=== PATIENT | female | born 1975 | race Caucasian/White ===

== ENCOUNTER → 2021-09-30 10:13 | Outpatient (CLI) | payer OTHER, SELFPAY ==
--- NOTE | ~2021-09-30 | CT_ITS ---
EXAMINATION: CT abdomen pelvis w con DATE: 09/30/2021 10:36 INDICATION: Left lower quadrant abdominal pain TECHNIQUE: Computed tomography (CT) of the abdomen and pelvis was performed with 100 mL Omnipaque-300 intravenous contrast. Automated exposure control and iterative reconstruction technique were employe d. The dose-length product was 505.52 mGy-cm. COMPARISON: None FINDINGS: Lung bases are clear. Heart size is normal. No pericardial or pleural effusion. Status post cholecyst ectomy. Liver, spleen, pancreas, bilateral adrenal glands and kidneys are normal. Decompressed bladde r is normal. The uterus is not identified and has likely been surgically resected. Bowels including t he appendix are normal. Trace amount of likely physiologic free fluid in the pelvis. No abscess or fr ee intraperitoneal gas. No pathologically enlarged abdominal or pelvic lymphadenopathy. Bones are unr emarkable. IMPRESSION: 1. No acute intra-abdominal/pelvic process. Reviewed, dictated and finalized at location B.
== END ==
PROVIDERS: PCP Physician Assistant; Visit Provider Physician Assistant
DX: R10.32 Left lower quadrant pain (principal); Z87.42 Personal history of other diseases of the female genital tract
CPT/HCPCS: 74177; Q9967

== ENCOUNTER 2021-12-21 01:31 | Day surgery (SDC) | payer OTHER, SELFPAY ==
[2021-12-16 14:13] VITALS: BMI 25.2
[2021-12-21 10:04] VITALS: BP 118/70; PULSE 72; RESP 18; TEMP 36.2; O2SAT 99
[2021-12-21] MEDS: LACTATED RINGERS 1,000 ML 150 ML IV CONT (10:11)
--- NOTE | 2021-12-21 10:29 | WPDHPUPDATE1 ---
History and Physical Update Update Date/Time: 12/21/21 10:29 History and Physical has been reviewed, including an updated exam of the patient. There are NO changes in the patient's condition. Risks, benefits, and alternatives have been discussed and questions answered. Patient agrees to proceed with procedure.
--- NOTE | 2021-12-21 10:31 | P.PNAN_ITS ---
Anes - Initial Pre Proc Eval Procedure: Operation Date: 12/21/21 11:15 Proposed Procedures p Esophagogastroduodenoscopy - Manohar Rodriguez MD Date/Time: 12/21/21 10:31 Surgeon: Manohar Rodriguez MD Pre Op Diagnosis: abdominal pain, back pain, abnormal stools Patient Data Age: 46 Gender: F Height: 1.7 m Weight: 73.4 kg Last Vital Signs Temp 97.1 F L 12/21/21 10:04 Pulse 72 12/21/21 10:04 Resp 18 12/21/21 10:04 BP 118/70 12/21/21 10:04 Pulse Ox 99 12/21/21 10:04 O2 Del Method Room Air 12/21/21 10:04 Allergies Allergy/AdvReac Type Severity Reaction Status Date / Time No Known Allergies Allergy Verified 12/21/21 09:59 Home Medications Medication Instructions Recorded Confirmed Type ciprofloxacin HCl 250 mg tablet 250 mg PO Q12H 12/14/21 12/16/21 History (Cipro) estradiol 1 mg tablet 1 mg PO DAILY 12/14/21 12/16/21 History pantoprazole 40 mg tablet,delayed 40 mg PO QAM 12/14/21 12/16/21 History release Patient hx anesthesia problems: none Family hx anesthesia problems: none Results Review: All pre-operative results and documents have been reviewed as part of the pre- operative evaluation. [facility] Past Medical History Medical History (Updated 12/14/21 @ 13:17 by IDA FayeN-Aki) Back pain Cholecystectomy planned Elevated lipase Left flank pain Loose stools Migraine Post hysterectomy menopause Social History Social History Smoking status: Never smoker Alcohol intake: never Substance use: never Substance use type: does not use Living arrangements: with family Spiritual care concerns: No Anes - Eval Final PreProcedure Day of Procedure 12/21/21 10:31 Patient weight: normal Heart: regular rate and rhythm Lungs: clear to auscultation Airway: Mallampati scale Neurological: alert and oriented Last oral intake: >/= 8 hours ASA classification: II Emergent: no Anesthetic plan: proceed Anesthesia type and monitoring: general GIVS and standard monitoring Results Review: All pre-operative results and documents have been reviewed as part of the pre- operative evaluation. Informed Consent: The patient's anesthetic plan and its attendant risks and benefits were discussed with the patient/family/POA. Questions were solicited and answers provided to the satisfaction of the patient/family/POA.
[2021-12-21 10:42] VITALS: BP 103/71; PULSE 73; RESP 22; O2SAT 100
[2021-12-21 10:52] VITALS: BP 118/83; PULSE 68; RESP 17; O2SAT 96
[2021-12-21 11:02] VITALS: BP 121/85; PULSE 65; RESP 19; O2SAT 100
== END 2021-12-21 11:14 | disposition home or self-care (01) ==
PROVIDERS: PCP Internal Medicine; Visit Provider Internal Medicine Gastroenterology
PROC: 0DJ08ZZ Inspection of Upper Intestinal Tract, Via Natural or Artificial Opening Endoscopic (ICD-10-PCS; CPT 43235; principal; 2021-12-21 11:15)
DX: M54.9 Dorsalgia, unspecified (principal); R10.9 Unspecified abdominal pain; R74.8 Abnormal levels of other serum enzymes; R19.5 Other fecal abnormalities; K29.50 Unspecified chronic gastritis without bleeding; N80.9 Endometriosis, unspecified; Z90.49 Acquired absence of other specified parts of digestive tract; R82.90 Unspecified abnormal findings in urine
CPT/HCPCS: 43239; 88305; J2704; J7120

== ENCOUNTER → 2022-06-13 10:21 | Outpatient (CLI) | payer OTHER, SELFPAY ==
--- NOTE | ~2022-06-13 | CT_ITS ---
EXAMINATION: CT abdomen pelvis wo/w con DATE: 06/13/2022 11:24 INDICATION: Left flank pain TECHNIQUE: Computed tomography (CT) of the abdomen and pelvis was performed without intravenous contr ast. CT of the abdomen and pelvis was then performed with a total of 130 mL Omnipaque 350 intravenous contrast using a double-bolus technique for simultaneous opacification of the renal parenchyma and r enal collecting system. The dose-length product (DLP) was 1353.60 mGy-cm. Automated exposure control and iterative reconstruction technique were employed. COMPARISON: 09/30/2021 FINDINGS: Minimal dependent atelectasis is present in the lung bases. The heart size is normal. The g allbladder is surgically absent. The liver, spleen, pancreas, and adrenal glands are normal. No stone s are identified in the kidneys, ureters, or bladder. No hydronephrosis or hydroureter. The kidneys a re unremarkable. No suspicious renal or urothelial lesion identified. No pathologically enlarged abdo italo or pelvic lymph nodes are identified. No free intraperitoneal gas or evidence of bowel obstruct ion. The appendix is normal. IMPRESSION: 1. No CT correlate for the patient's symptoms. Reviewed, dictated and finalized at location B. [employer] OPERATOR
[2022-06-13 11:01] LABS: Estimated Glomerular Filt Rate > 60
== END ==
DX: R10.9 Unspecified abdominal pain (principal)
CPT/HCPCS: 74178; Q9967

== ENCOUNTER → 2023-04-10 09:34 | Outpatient (CLI) | payer OTHER, SELFPAY ==
--- NOTE | ~2023-04-10 | XR_ITS ---
XR cervical spine min 6V INDICATION: Neck pain TECHNIQUE: 7 views of the cervical spine including flexion/extension. FINDINGS: The cervical spine is visualized to the cervicothoracic junction. There is no prevertebral soft tiss ue swelling, listhesis, or loss of vertebral body height. Intervertebral disc spaces are normal. Th e osseous central canal is patent. No displaced cervical spine fractures are identified. No signific ant alteration of alignment with flexion/extension IMPRESSION: 1. No significant osseous abnormality of the cervical spine. Reviewed, dictated and finalized at location B. CAL OFFICE ASSISTANT
--- NOTE | ~2023-04-10 | XR_ITS ---
XR lumbar spine min 4V 04/10/2023 10:02 Indication: Low back pain Procedure: 5 views lumbar spine Comparison: No prior studies for comparison. Findings: Vertebral body heights are maintained. No acute fracture or traumatic malalignment. There i s mild disc narrowing at L4-5. No evidence for spondylolisthesis. Sacral foramen are symmetric. Impression: 1: Mild lumbar spondylosis. Reviewed, dictated and finalized at location B. 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
== END ==
PROVIDERS: PCP Nurse Practitioner Family; Visit Provider Chiropractor
DX: M54.2 Cervicalgia (principal); M47.896 Other spondylosis, lumbar region
CPT/HCPCS: 72052; 72110